=== PATIENT | female | born 1975 | race African-American/Black ===

== ENCOUNTER 2019-06-02 09:47 | Day surgery (SDC) | payer MEDICAID ==
[~2019-06-02] VITALS: Ht 160 cm; Wt 90.7 kg
[2019-06-02] MEDS ORDERED: LACTATED RINGERS 1,000 ML IV SCH (10:30)
[2019-06-02 11:58] LABS: UCG SCREEN NEGATIVE
[2019-06-02] MEDS ORDERED: PROPOFOL 200MG/20ML VIAL IV ONE ×4 (13:07→13:37)
[2019-06-02] MEDS ORDERED: GLYCOPYRROLATE 0.2 MG/ML 2ML VIAL ONE (13:08)
[2019-06-02] MEDS ORDERED: SIMETHICONE 40 MG/0.6 ML 30ML ONE (13:10)
[2019-06-02] MEDS ORDERED: DIPH50CA38 PO (13:55)
[2019-06-02] MEDS ORDERED: BENA10TA12 PO (13:55)
[2019-06-02] MEDS ORDERED: QUET100T33 PO (13:55)
[2019-06-02] MEDS ORDERED: NAPHADR BOTHEYE (13:55)
[2019-06-02] MEDS ORDERED: MAG-55 PO (13:55)
[2019-06-02] MEDS ORDERED: OMEP20CA5 PO (13:55)
[2019-06-02] MEDS ORDERED: HYDR25TA PO (13:55)
[2019-06-02] MEDS ORDERED: BUPR150T9 PO (13:55)
[2019-06-02] MEDS ORDERED: DIVA-73 PO (13:55)
== END 2019-06-02 15:25 | disposition home or self-care (01) ==
LOC: OR 09:47
PROVIDERS: ATTEND Internal Medicine Gastroenterology
DX: K29.50 Unspecified chronic gastritis without bleeding (principal); K31.89 Other diseases of stomach and duodenum; K29.80 Duodenitis without bleeding; K52.9 Noninfective gastroenteritis and colitis, unspecified; K21.9 Gastro-esophageal reflux disease without esophagitis; I10 Essential (primary) hypertension; E66.01 Morbid (severe) obesity due to excess calories; F31.9 Bipolar disorder, unspecified; Z98.891 History of uterine scar from previous surgery; Z98.890 Other specified postprocedural states; Z79.899 Other long term (current) drug therapy; Z68.35 Body mass index [BMI] 35.0-35.9, adult
CPT/HCPCS: 43239; 45380; 81025; 88305; 88312; 88313; J2704; J3490